=== PATIENT | female | born 1980 ===

== ENCOUNTER 2016-11-22 08:38 | Emergency (ER) | payer BC ==
[2016-11-22 08:52] VITALS: BP 101/61
--- NOTE | 2016-11-22 11:55 | UC ---
Logan Arriaza Karl, scribed for Uma Holguin DO on 11/22/16 at 0939 . General HPI - HPI Summary HPI Summary: Pt is a 36 y/o female that came to [facility] to confirm that she is before she leaves to return to [place] next month. LNMP was 10/13/16. - History of Current Complaint Chief Complaint: UCGeneralIllness Stated Complaint: PREG TEST Time Seen by Provider: 11/22/16 09:23 Hx Obtained From: Patient Current Severity: None Associated Signs & Symptoms: Negative: Abdominal Pain, Cough, Dizziness, Diarrhea, Dysuria, Edema, Fever, Headache, Nausea, SOB - Allergy/Home Medications Allergies/Adverse Reactions: Allergies Allergy/AdvReac Type Severity Reaction Status Date / Time No Known Allergies Allergy Verified 08/06/16 14:33 PMH/Surg Hx/FS Hx/Imm Hx Previously Healthy: Yes Endocrine History Of: Denies: Diabetes, Thyroid Disease, Hyperthyroidism, Hypothyroidism, Dyslipidemia Cardiovascular History Of: Denies: Cardiac Disorders, Hypertension, Pacemaker/ICD, Myocardial Infarction , Congestive Heart Failure, Atrial Fibrillation, Deep Vein Thrombosis, Bleeding Disorders Respiratory History Of: Denies: COPD, Asthma, Bronchitis, Pneumonia, Pulmonary Embolism GI/ History Of: Reports: Kidney Stones Denies: Gastroesophageal Reflux, Ulcer, Gastrointestinal Bleed, Gall Bladder Disease, Diverticulitis, Renal Disease, Urosepsis Neurological History Of: Denies: TIA, CVA, Dementia, Seizures, Migraine Psychological History Of: Denies: Anxiety, Depression, Bipolar Disorder, Schizophrenia, Post Traumatic Stress Disorder Cancer History Of: Denies: Lung Cancer, Colorectal Cancer, Breast Cancer, Prostate Cancer, Cervical Cancer Other History Of: Negative For: HIV, Hepatitis B, Hepatitis C, Anticoagulant Therapy - Surgical History Surgical History: Yes Surgery Procedure, Year, and Place: kidney stones - Family History Known Family History: Negative: Cardiac Disease, Hypertension, Diabetes Family History: no cardio vascular issues in family lineage - Social History Occupation: Student Lives: With Family Alcohol Use: None Substance Use Type: None Smoking Status (MU): Never Smoked Tobacco Have You Smoked in the Last Year: No Review of Systems Constitutional: Negative Skin: Negative Eyes: Negative ENT: Negative Respiratory: Negative Cardiovascular: Negative Gastrointestinal: Negative Genitourinary: Negative Motor: Negative Neurovascular: Negative Musculoskeletal: Negative Neurological: Negative Psychological: Negative All Other Systems Reviewed And Are Negative: Yes Physical Exam Triage Information Reviewed: Yes Appearance: Well-Appearing, No Pain Distress, Well-Nourished Vital Signs: Initial Vital Signs Temp 98.7 F 11/22/16 08:46 Pulse 90 11/22/16 08:46 Resp 18 11/22/16 08:46 BP 101/61 11/22/16 08:46 Pulse Ox 97 11/22/16 08:46 Vital Signs Reviewed: Yes Eyes: Positive: Conjunctiva Clear. Negative: Discharge ENT: Positive: Normal ENT inspection. Negative: Muffled/hoarse voice Neck exam: Normal Neck: Positive: Supple Respiratory: Positive: Chest non-tender, Lungs clear, Normal breath sounds, No respiratory distress Cardiovascular: Positive: RRR, No Murmur Musculoskeletal Exam: Normal Neurological: Positive: Alert, Muscle Tone Normal Psychological Exam: Normal Psychological: Positive: Age Appropriate Behavior Skin Exam: Normal - warm, dry, normal color Course/Dx - Differential Dx - Multi-Symptom Provider Diagnoses: Discharge - Discharge Plan Condition: Stable Disposition: HOME Patient Education Materials: (ED) Referrals: [facility] [Outside] (IN 3-7 DAYS) No Primary Care Phys,NOPCP [Primary Care Provider] - Additional Instructions: YOU WILL WANT TO GET YOUR FIRST ULTRASOUND AT ABOUT 8 WEEKS AFTER CONCEPTION. Air travel is very safe during . There is no radiation risk, the X-ray machines are actually glorified metal detectors and are very safe to walk through (as are the full body scanners) and all cabins are pressurized. The first trimester is a great time to travel, except that morning sickness and fatigue often kick in around 7 to 8 weeks, so be prepared. You may feel great when you book your trip, but terrible by the time you leave. Ask your practitioner for tips to help with nausea, as ask for safe anti-nausea medication to take with you, just in case. The only real risk of a long flight is a DVT (deep venous thrombosis) or blood clot. This is a risk for all travelers on long flights, but women are at higher risk. To help prevent this from happening, see the tips below. Below are a few travel tips to women on the go: 1. Book an Aisle Seat - It's easier access for your hourly walks and trips to the restroom. 2. Prevent Air Sickness - If you are still in the morning sickness phase of , air travel may make things worse. Ask your practitioner for an anti-nausea medication to take with you. 3. Wear Pantyhose - Some practitioners recommend that you wear support stockings to increase circulation and prevent a blood clot from developing in your leg. 4. Take a Walk - Avoid being immobilized for long periods of time. Being means you are at higher risk of developing a blood clot in your leg that can potentially travel to your lungs. Stretch your calves periodically while you are seated and walk the aisle once an hour if you are on a long flight. 5. Drink Water - You'll feel better by being well hydrated. It also helps prevent those blood clots. Take an empty water bottle with you in carry- on luggage and fill it up after you get through security. 6. Go Gas Free - Don' t drink or eat any gas-producing items (carbonated beverages, refried beans, etc.) before or during your flight. Entrapped gas expands at higher altitudes and can give you a stomachache. Avoiding these foods also prevents burping and gas passing next to a stranger who can't escape! Other tips: - Always tell your practitioner about your plans before booking your trip. - Educate yourself on hospitals located at your destination, just in case. - Purchase travel insurance and in the case of a boat/cruise, evacuation insurance (like [employer]). Comment by Dr. Chuckie Earl The documentation as recorded by the Logan palacio Karl accurately reflects the service I personally performed and the decisions made by me, Uma Holguin DO.
== END 2016-11-22 09:55 | disposition home or self-care (01) ==
LOC: UCEAST 08:38
DX: Z32.01 Encounter for pregnancy test, result positive (principal)
CPT/HCPCS: 81025; 99201; G0463